=== PATIENT | female | born 1955 | race Caucasian/White ===

== ENCOUNTER 2016-12-26 09:57 | Inpatient (IN) | payer OTHER ==
[2016-12-26 10:15] LABS: BASOPHILS % (AUTO) 1 % (0-3); EOSINOPHILS % (AUTO) 1 % (0-9); HEMATOCRIT 40 % (35-47); MEAN CORPUSCULAR HGB CONC 35.3 gm/dl (32.0-36.0); MEAN CORPUSCULAR VOLUME 83 fL (81-99); MONOCYTES % (AUTO) 6.9 % (0-12); NEUTROPHILS % (AUTO) 66.5 % (37-80)
[2016-12-26 10:29] LABS: POTASSIUM 4.5 mMol/L (3.5-5.1)
[2016-12-26] MEDS ORDERED: PROCHLORPERAZINE EDISYLATE 5 MG/ML SOL ONE (10:50)
[2016-12-26] MEDS ORDERED: MORPHINE SULFATE 10 MG/ML SOL ONE (10:50)
[2016-12-26] MEDS ORDERED: PROCHLORPERAZINE EDISYLATE 5 MG/ML SOL IV ONE (10:52)
[2016-12-26] MEDS ORDERED: MORPHINE SULFATE 10 MG/ML SOL IV ONE (10:52)
[2016-12-26] MEDS: SODIUM CHLORIDE 0.9% FLUSH 10 ML SOL IV PRN ×2 (10:58→23:04)
[2016-12-26] MEDS ORDERED: ACETAMINOPHEN 500 MG 500 MG TAB PO PRN (12:00)
[2016-12-26] MEDS ORDERED: ONDANSETRON 4 MG ODT BU PRN (12:00)
[2016-12-26 23:19] VITALS: TEMP 98.8
[2016-12-27 08:35] VITALS: BP 130/79; PULSE 65; RESP 18; O2SAT 97
== END 2016-12-27 09:55 | disposition home or self-care (01) | DRG 90 ==
LOC: ED 09:57 → UNDOADMIN 11:48 → ACUTE CARE 11:48
PROVIDERS: ADMIT Family Medicine; ATTEND Family Medicine
DX: S06.0X9A Concussion with loss of consciousness of unspecified duration, initial encounter (principal); R40.2412 Glasgow coma scale score 13-15, at arrival to emergency department; V80.010A Animal-rider injured by fall from or being thrown from horse in noncollision accident, initial encounter
CPT/HCPCS: 36415; 70450; 70551; 72125; 80048; 85025; 85610; 96374; 96375; 99284; 99285; G0390; J0780; J2270

== ENCOUNTER 2017-11-03 07:15 | Emergency (ER) | payer OTHER ==
[2017-11-03 07:28] VITALS: RESP 18; TEMP 98.4
[2017-11-03 09:26] VITALS: BP 142/75; PULSE 70; O2SAT 99
== END 2017-11-03 09:05 | disposition home or self-care (01) | DRG 556 ==
LOC: ED 07:15
DX: M25.561 Pain in right knee (principal)
CPT/HCPCS: 73562; 99283

== ENCOUNTER 2017-12-14 09:46 | Emergency (ER) | payer OTHER ==
[2017-12-14 10:01] VITALS: RESP 20; TEMP 97.4
[2017-12-14 10:20] LABS: HEMATOCRIT 41 % (35-47); HEMOGLOBIN 14.3 gm/dl (12.0-15.5); MEAN CORPUSCULAR HEMOGLOBIN 29.8 pg (27.0-32.0); MEAN CORPUSCULAR HGB CONC 34.9 gm/dl (32.0-36.0); MEAN CORPUSCULAR VOLUME 85 fL (81-99)
[2017-12-14 10:38] LABS: BLOOD UREA NITROGEN 12 mg/dl (7-18); CALCIUM 9.1 mg/dl (8.5-10.1); CARBON DIOXIDE 28.2 mEq/L (21-32); CREATININE 0.73 mg/dl (0.60-1.00); GLOM FILT RATE 81 mL/min (>60); GLUCOSE 97 mg/dl (74-106); TROP I < 0.017 ng/ml (0.000-0.056)
[2017-12-14 10:48] LABS: CHLORIDE 105 mMol/L (98-107); POTASSIUM 4.5 mMol/L (3.5-5.1); SODIUM 141 mMol/L (136-145)
[2017-12-14 11:08] LABS: BAND NEUTROPHILS % (MANUAL) 0 %; BASOPHILS % (MANUAL) 0 % (0-3); EOSINOPHILS % (MANUAL) 3 % (0-9); LYMPHOCYTES % (MANUAL) 43 % (10-50); MONOCYTES % (MANUAL) 8 % (0-12); NEUTROPHILS % (MANUAL) 46 % (37-80); NORMAL RBCS PRESENT
[2017-12-14 11:27] VITALS: O2SAT 98
[2017-12-14 11:29] VITALS: BP 145/77; PULSE 68
== END 2017-12-14 12:19 | disposition home or self-care (01) | DRG 312 ==
LOC: ED 09:46
DX: R55 Syncope and collapse (principal); R40.2362 Coma scale, best motor response, obeys commands, at arrival to emergency department; R40.2142 Coma scale, eyes open, spontaneous, at arrival to emergency department; R40.2252 Coma scale, best verbal response, oriented, at arrival to emergency department
CPT/HCPCS: 36415; 70450; 80048; 84484; 85007; 85027; 93005; 99284